=== PATIENT | male | born 1995 | race Caucasian/White ===

== ENCOUNTER 2020-12-12 20:14 | Emergency (ER) | payer SELFPAY ==
[~2020-12-12] VITALS: Ht 180.3 cm; Wt 95.3 kg
[2020-12-12 20:30] VITALS: BP 135/87
--- NOTE | 2020-12-12 20:54 | NUR ---
PT C/O STERNAL C/P X 3 DAYS DESCRIBES 9/10 SHARP PAIN, NON RADIATING PAIN. ALSO HAVING SOB, O2 SAT ON RA 99%, DENIES COUGH, LUNG SOUNDS CLEAR BILATERALLY. AFEBRILE. PT STATES WHEN HE EATS GREASY FOOD, OR FAST FOOD HE REGURGITATES FOOD, STATES IT'S NOT VOMITING, IT JUST COMES UP. ABD SOFT, NONTENDER. STATES BOWEL MOVEMENTS ARE NORMAL. BED IN LOWEST POSITION AND SIDERAIL UP X 1. NKA NO HX
[2020-12-12] MEDS ORDERED: LORazepam 2 MG/ML VIAL IM ONE (21:20)
--- NOTE | 2020-12-12 21:22 | NUR ---
X-RAY AT BEDSIDE
--- NOTE | 2020-12-12 22:22 | NUR ---
URINE OBTAINED AND BROUGHT TO LAB
--- NOTE | 2020-12-12 22:34 | NUR ---
PT STATES HE IS FEELING MUCH BETTER AFTER THE ATIVAN. NO LONGER HAVING SOB OR CHEST PAIN
[2020-12-12 22:43] LABS: BARBITURATE, URINE NEGATIVE ng/ml (NEG <=200); BENZODIAZEPINE, URINE NEGATIVE ng/mL (NEG <=200); CANNABINOID, URINE NEGATIVE ng/mL (NEG <=50); COCAINE, URINE NEGATIVE ng/mL (NEG <=300); OPIATE, URINE NEGATIVE ng/mL (NEG <=2000); PHENCYCLIDINE SCREEN,URINE NEGATIVE ng/mL (NEG <=25)
[2020-12-12] MEDS ORDERED: MAG-27 PO (22:44)
[2020-12-12] MEDS ORDERED: ATA25 PO (22:44)
[2020-12-12 22:50] VITALS: BP 129/91
--- NOTE | 2020-12-12 22:50 | NUR ---
Patient discharged with v/s stable. Written and verbal after care instructions given and explained. Patient alert, oriented and verbalized understanding of instructions. Ambulatory with steady gait. All questions addressed prior to discharge. ID band removed. Patient advised to follow up with PMD. Rx of MYLANTA AND ATARAX given. Patient educated on indication of medication including possible reaction and side effects. Opportunity to ask questions provided and answered.
== END 2020-12-12 22:50 | disposition home or self-care (01) ==
LOC: MED 20:14
DX: F41.9 Anxiety disorder, unspecified (principal); R06.02 Shortness of breath; Z79.899 Other long term (current) drug therapy
CPT/HCPCS: 71045; 80305; 93005; 96372; 99285; J2060